=== PATIENT | female | born 1950 | race Caucasian/White ===

== ENCOUNTER 2020-01-05 10:45 | Emergency (ER) | payer MEDICARE, BC ==
[2020-01-05] MEDS ORDERED: Fentanyl 100 MCG/2 ML VIAL ONE ×2 (10:57→11:12)
[2020-01-05] MEDS ORDERED: Ondansetron PF 4 MG/2 ML Vial ONE ×2 (11:11→12:07)
[2020-01-05 11:24] LABS: #Basophils 0.1 thou/uL (0.0-0.2); #Eosinphils 0.1 thou/uL (0.0-0.7); #Lymphocytes 1.4 thou/uL (1.20-3.40); #Monocytes 0.5 thou/uL (0.11-0.59); #Neutrophils 6.3 thou/uL (1.40-6.50); %Basophils 0.9 % (0.0-1.0); %Eosinophils 0.8 % (0.0-10.0); %Lymphocytes 17.1 % (21.0-51.0); %Neutrophils 75.2 % (42.0-75.0); Hemoglobin 14.1 g/dL (12.0-16.0); Mean Corpuscular HGB CONC 30.7 g/dL (32.0-36.0); Mean Corpuscular Hemoglobin 28.8 pg (27.0-31.0); Mean Corpuscular Volume 94.1 fL (78.0-98.0); Mean Platelet Volume 8.5 fL (7.4-10.4); Platelet Count 200 thou/uL (130-400); RBC Distribution Width 14.1 % (11.5-14.5); Red Blood Cell (RBC) Count 4.89 mill/uL (4.20-5.40); White Blood Cell (WBC) Count 8.4 thou/uL (4.8-10.8)
[2020-01-05 11:35] LABS: ALT (SGPT) 41 U/L (8-55); AST (SGOT) 24 U/L (5-34); Albumin 4.3 g/dL (3.4-4.8); Alkaline Phosphatase 115 U/L (40-110); Anion Gap 18 mmol/L (10-20); BUN (Urea Nitrogen) 17 mg/dL (9.8-20.1); Bilirubin, Total 0.6 mg/dL (0.2-1.2); Calc. Creatinine Clearance 0 mL/min (70-130); Calcium 9.3 mg/dL (7.8-10.44); Carbon Dioxide 22 mmol/L (23-31); Chloride 108 mmol/L (98-107); Estimated GFR-MDRD 50; Globulin 2.2 g/dL (2.4-3.5); Glucose 145 mg/dL (80-115); Potassium 3.7 mmol/L (3.5-5.1); Protein, Total 6.5 g/dL (6.0-8.3); Sodium 144 mmol/L (136-145)
[2020-01-05] MEDS ORDERED: HYDROmorphone 0.5 MG/0.5 ML SYRINGE ONE ×2 (12:11→12:35)
[2020-01-05 12:31] LABS: Bilirubin Negative (Negative); Blood, Urine Trace (Negative); Clarity Clear (Clear); Glucose, Urine (Dipstick) 100 mg/dL (Negative); Ketone, Urine 15 mg/dL (Negative); Leukocyte Negative (Negative); Nitrite Negative (Negative); Protein, Urine (Dipstick) Negative (Neg-Trace); Specific Gravity, Urine 1.025 (1.005-1.030); Urobilinogen 0.2 mg/dL (Less than 2); pH, Urine 7.5 (5.0-9.0)
[2020-01-05] MEDS ORDERED: Promethazine HCl 25 MG/ML VIAL ONE (12:35)
[2020-01-05 12:41] LABS: Bacteria/HPF Rare-Few HPF (None Seen); RBC/HPF 0-3 HPF (0-3); Squamous Epithelial 0-3 HPF (0-3); WBC/HPF None Seen HPF (0-3)
--- NOTE | 2020-01-05 12:50 | CT ---
CT Abdomen Pelvis W WO con History: Abdominal pain. Comparison: None. Findings: Lung bases are clear. No pericardial effusion. Diffuse hepatic steatosis. Abnormal enhancement of the right ureter with a 2 x 3 mm stone distal right ureter 3 cm from the uret erovesicular junction. Moderate stranding along the right renal pelvis. Minimal perinephric stranding. Adrenal glands are unremarkable. No other stone is seen within the renal collecting systems. Renal ar teries and veins are patent. Pancreas is unremarkable. Spleen is unremarkable. Extensive diverticular disease sigmoid colon without active current inflammation. No dilated loops of large or small bowel. Impression: Partially obstructing 2 x 3 mm calculus distal right ureter 3 cm from the ureterovesicula r junction with inflamed right ureter and mild free fluid along the renal pelvis. No other renal calculus is appreciated.
[2020-01-05] MEDS ORDERED: Ketorolac Tromethamine 30 MG/ML VIAL ONE (13:07)
[2020-01-05 14:05] LABS: Lactic Acid 1.2 mmol/L (0.5-2.2)
[2020-01-05] MEDS ORDERED: Iopamidol 370 76% 100 ML VIAL ONE (15:19)
== END 2020-01-05 14:22 | disposition home or self-care (01) ==
LOC: BURERS 10:45
DX: N20.1 Calculus of ureter (principal); K21.9 Gastro-esophageal reflux disease without esophagitis; I10 Essential (primary) hypertension; Z87.891 Personal history of nicotine dependence
CPT/HCPCS: 36415; 74178; 80053; 81003; 81015; 83605; 84484; 85025; 93005; 94760; 96361; 96365; 96375; 96376; J1170; J1885; J2405; J2550; J3010; Q9967